=== PATIENT | female | born 1990 | race African-American/Black ===

== ENCOUNTER 2022-06-02 13:45 | Emergency (ER) | payer MEDICAID ==
[~2022-06-02] VITALS: Ht 160 cm; Wt 86.2 kg
[2022-06-02 13:50] VITALS: BP 172/112
[2022-06-02] MEDS ORDERED: NACL 0.9% 1,000 ML IV ONE (14:40)
[2022-06-02] MEDS ORDERED: KETOROLAC 30 MG/ML VIAL IVP ONE (14:40)
--- NOTE | 2022-06-02 14:50 | NUR ---
PT WAS [facility] FROM HOME FOR ABD PAIN WITH N/V. PT WAS D/C'D FROM [place] YESTERDAY FOR SAME REASON. TRIED SL 3 TIMES BUT FAILED. PHLEBOTAMIST AXEL BLOOD.
[2022-06-02 15:02] LABS: BASOPHILS # (AUTO) 0.1 K/uL (0.00-0.22); BASOPHILS % (AUTO) 0.6 % (0.0-2.0); EOSINOPHILS % (AUTO) 0.4 % (0.0-4.0); HEMATOCRIT 40.2 % (36-48); HEMOGLOBIN 13.7 g/dL (12.0-16.0); LYMPHOCYTES # (AUTO) 1.2 K/uL (2.5-16.5); LYMPHOCYTES % (AUTO) 9.5 % (20.5-51.1); MEAN CORPUSCULAR HEMOGLOBIN 31 pg (27-31); MEAN CORPUSCULAR HGB CONC 34 g/dL (33-37); MEAN CORPUSCULAR VOLUME 90.2 fL (80-94); MONOCYTES # (AUTO) 0.3 K/uL (0.8-1.0); MONOCYTES % (AUTO) 2.6 % (1.7-9.3); NEUTROPHILS # (AUTO) 11.2 K/uL (1.8-7.7); NEUTROPHILS % (AUTO) 86.9 % (42.2-75.2); PLATELET COUNT (AUTO) 357 K/uL (140-450); RED BLOOD CELL COUNT(AUTO) 4.46 MIL/uL (4.20-5.40); RED CELL DISTRIBUTION WIDTH 12.6 % (11.6-13.7); WHITE BLOOD COUNT (AUTO) 12.9 K/uL (4.8-10.8)
[2022-06-02 15:26] LABS: ALBUMIN 4.1 g/dL (3.4-5.0); ANION GAP 18.5 (8-16); CARBON DIOXIDE 21.8 mmol/L (21-32); CREATININE 0.9 mg/dL (0.6-1.3); POTASSIUM 3.3 mmol/L (3.5-5.1); TOTAL BILIRUBIN 0.9 mg/dL (0.0-1.0)
[2022-06-02] MEDS ORDERED: ACETAMINOPHEN EXTRA STRENGTH 500 MG TAB PO ONE (15:30)
--- NOTE | 2022-06-02 15:30 | NUR ---
TRIED TO START SL BUT FAIL AGAIN. DR. JACOBS NOTIFIED.
--- NOTE | 2022-06-02 15:45 | NUR ---
PT STATES SHE CANT HAVE KETOROLAC BECAUSE SHE IS ALLERGIC. STATES SHE GETS RASHES
--- NOTE | 2022-06-02 15:47 | NUR ---
DR. DAMON ORDERED TYLENOL FOR PT. BUT PT REFUSED. "IT DOSN'T WORK" PT SAID. PT REQUESTS HOLDAL WITH BENADRYL. DR. DAMON NOTIFIED.
[2022-06-02] MEDS ORDERED: diphenhydrAMINE 50 MG/ML VIAL IM ONE (15:55)
[2022-06-02] MEDS ORDERED: HALOPERIDOL IM 5 MG/ML VIAL IM ONE (15:55)
--- NOTE | 2022-06-02 16:02 | NUR ---
HALDOL AND BENADRYL IM GIVEN PER MD ORDER. THEN PT WAS TAKEN TO CT.
[2022-06-02] MEDS ORDERED: FAMO-90 PO (17:37)
[2022-06-02] MEDS ORDERED: METO-486 PO (17:37)
[2022-06-02 17:50] VITALS: BP 172/112
--- NOTE | 2022-06-02 17:50 | NUR ---
Patient discharged with v/s stable. Written and verbal after care instructions given and explained. Patient alert, oriented and verbalized understanding of instructions. Ambulatory with steady gait. All questions addressed prior to discharge. ID band removed. Patient advised to follow up with PMD. Rx of megan sanders (sent) given. Patient educated on indication of medication including possible reaction and side effects. Opportunity to ask questions provided and answered. work note, labs and imaging given
--- NOTE | 2022-06-02 17:52 | NUR ---
pt refusing to leave after multple attempts to discharge, security called at this time
== END 2022-06-02 17:50 | disposition home or self-care (01) ==
LOC: MED 13:45
DX: R10.9 Unspecified abdominal pain (principal); R07.9 Chest pain, unspecified; M54.9 Dorsalgia, unspecified; F41.9 Anxiety disorder, unspecified; E11.65 Type 2 diabetes mellitus with hyperglycemia; Z20.822 Contact with and (suspected) exposure to COVID-19
CPT/HCPCS: 36415; 71045; 74176; 80053; 83605; 84484; 85025; 85379; 87040; 87426; 87804; 96372; 99285; J1200; J1630; Q0092

== ENCOUNTER 2022-10-24 12:48 | Emergency (ER) | payer MEDICAID ==
[~2022-10-24] VITALS: Ht 160 cm; Wt 86.2 kg
[~2022-10-24 12:48] MED LIST: FAMO-90 PO; METO-486 PO
[2022-10-24 12:59] VITALS: BP 170/79; PULSE 98; RESP 18; TEMP 98.3; O2SAT 98
[2022-10-24] MEDS ORDERED: KETOROLAC 30 MG/ML VIAL IM ONE (13:05)
[2022-10-24] MEDS ORDERED: LIDOCAINE 5% 1 EA PATCH TP ONE (13:05)
[2022-10-24] MEDS ORDERED: MORPHINE SULFATE 4 MG/ML SYR IM ONE ×2 (13:30→15:25)
[2022-10-24 13:41] LABS: APPEARANCE,URINE CLEAR (CLEAR); BILIRUBIN,URINE NEGATIVE (NEGATIVE); BLOOD, URINE TRACE-I (NEGATIVE); COLOR,URINE YELLOW (YELLOW); LEUKOCYTE ESTERASE ,URINE NEGATIVE (NEGATIVE); NITRITE, URINE NEGATIVE (NEGATIVE); PROTEIN,URINE NEGATIVE (NEGATIVE); UGLUCOSE 3+ (NEGATIVE); UROBILINOGEN,URINE 0.2 EU/dL (0.2 - 1)
[2022-10-24] MEDS ORDERED: NACL 0.9% 1,000 ML IV ONE (14:35)
[2022-10-24] MEDS ORDERED: MORPHINE SULFATE 4 MG/ML SYR IVP ONE (15:15)
[2022-10-24] MEDS ORDERED: LID5T TP (16:50)
[2022-10-24] MEDS ORDERED: BEN10 PO (16:50)
[2022-10-24] MEDS ORDERED: CYCL-711 PO (16:50)
[2022-10-24 19:19] VITALS: BP 149/88; PULSE 91; RESP 20; TEMP 98.5; O2SAT 98
== END 2022-10-24 19:19 | disposition home or self-care (01) ==
LOC: MED 12:48
DX: M54.6 Pain in thoracic spine (principal); M54.50 Low back pain, unspecified; E11.65 Type 2 diabetes mellitus with hyperglycemia; F41.9 Anxiety disorder, unspecified; F32.9 Major depressive disorder, single episode, unspecified; Z90.49 Acquired absence of other specified parts of digestive tract; Z98.890 Other specified postprocedural states; Z79.899 Other long term (current) drug therapy; Z88.6 Allergy status to analgesic agent
CPT/HCPCS: 72080; 81003; 81025; 82948; 96372; 99285; J2270